=== PATIENT | female | born 1965 | race American Indian/Alaskan Native ===

== ENCOUNTER 2017-04-03 13:30 | Emergency (ER) | payer OTHER ==
[2017-04-03 13:40] VITALS: BMI 30.2
[2017-04-03 13:41] VITALS: O2SAT 99
--- NOTE | 2017-04-03 14:10 | C.PDOC ---
History Of Present Illness 52 y/o women c/o pain to the left upper arm for 2 days. 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 Reports having the same pain before with increased pain when raising left arm. Pain is 8/10, dull, achy, throbbing, and constant. Patient cannot extend or flex left shoulder. Denies weakness, numbness , or trauma. Time Seen by Provider: 04/03/17 14:03 Chief Complaint (Nursing): Upper Extremity Problem/Injury History Per: Patient History/Exam Limitations: no limitations Onset/Duration Of Symptoms: Days (2), Persistent Current Symptoms Are (Timing): Still Present Quality: Dull, Aching, Other (Throbbing ) Severity: Moderate Pain Scale Rating Of: 8 Exacerbating Factor(s): Movement Recent travel outside of the [place]: No Additional History Per: Patient Past Medical History Reviewed: Historical Data, Nursing Documentation, Vital Signs Vital Signs: Last Vital Signs Temp 98.1 F 04/03/17 15:28 Pulse 61 04/03/17 15:28 Resp 16 04/03/17 15:28 BP 129/85 04/03/17 15:28 Pulse Ox 99 04/03/17 17:36 Surgical History: Appendectomy Family History: States: Unknown Family Hx - Social History Hx Alcohol Use: No Hx Substance Use: No - Immunization History Hx Tetanus Toxoid Vaccination: No Hx Influenza Vaccination: No Hx Pneumococcal Vaccination: No Review Of Systems Constitutional: Negative for: Other (Trauma) Musculoskeletal: Positive for: Arm Pain (Left upper arm) Neurological: Negative for: Weakness, Numbness Physical Exam - Physical Exam Appears: Non-toxic, No Acute Distress Skin: Warm, Dry Head: Atraumatic, Normacephalic Neck: Normal ROM, No Midline Cervical Tenderness, No Paracervical Tenderness, Supple Extremity: No Normal ROM (Decreased ROM below 90 degree arnol during active motion. FROM during passive motionbut with pain.), Tenderness (Mild tenderness to the left upper arm), Capillary Refill (<2secs), No Deformity Pulses: Left Radial: Normal, Right Radial: Normal Neurological/Psych: Oriented x3, Normal Motor, Normal Sensation ED Course And Treatment O2 Sat by Pulse Oximetry: 99 (RA) Pulse Ox Interpretation: Normal Medical Decision Making Medical Decision Making: Impression: * pain to the left upper arm for 2 days. Plans: * Tylenol * Motrin Patient is in no acute distress and is improving with the left arm pain. Patient is without weakness or numbness and was advised to follow up with PMD for further evaluation. Disposition Counseled Patient/Family Regarding: Studies Performed, Diagnosis - Disposition Disposition: HOME/ ROUTINE Disposition Time: 15:16 Condition: STABLE Prescriptions: Ibuprofen [Motrin] 600 mg PO TID #15 tab Instructions: Arm Pain (ED) Forms: General Discharge Instructions, [facility] (Maltese), Work Excuse - POA Present On Arrival: None - Clinical Impression Clinical Impression: Muscle strain - Scribe Statement The provider has reviewed the documentation as recorded by the Scribe Nishi murphy All medical record entries made by the Scribe were at my direction and personally dictated by me. I have reviewed the chart and agree that the record accurately reflects my personal performance of the history, physical exam, medical decision making, and the department course for this patient. I have also personally directed, reviewed, and agree with the discharge instructions and disposition.
[2017-04-03 15:32] VITALS: BP 129/85; PULSE 61; RESP 16; TEMP 98.1
== END 2017-04-03 15:32 | disposition home or self-care (01) ==
LOC: C.ER 13:30
DX: S46.912A Strain of unspecified muscle, fascia and tendon at shoulder and upper arm level, left arm, initial encounter (principal); X58.XXXA Exposure to other specified factors, initial encounter; Y99.0 Civilian activity done for income or pay